=== PATIENT | female | born 1990 | race Two or more races ===

== ENCOUNTER 2018-06-30 10:28 | Emergency (ER) | payer OTHER ==
[~2018-06-30] VITALS: Ht 167.6 cm; Wt 63.5 kg
[2018-06-30] MEDS ORDERED: OBSTETRIX ONE1 EACH (11:07)
== END 2018-06-30 16:07 | disposition home or self-care (01) ==
LOC: ER 10:28
DX: O20.0 Threatened abortion (principal)

== ENCOUNTER 2018-11-30 15:39 | Inpatient (IN) | payer OTHER ==
[~2018-11-30] VITALS: Ht 167.6 cm; Wt 3.2 kg
[~2018-11-30 15:39] MED LIST: OBSTETRIX ONE1 EACH
[2019-01-07] MEDS ORDERED: INTEGRA PLUS C1 EACH PO (06:21)
[2019-01-10] MEDS ORDERED: KETO10TA2 PO (07:58)
[2019-01-10] MEDS ORDERED: OXYC1TAB9 PO (07:59)
== END 2019-01-10 12:12 | disposition home or self-care (01) | DRG 788 ==
LOC: OB/GYN 12-14 11:15 → LDR 01-07 05:37 → OB/GYN 01-07 05:37 → LDR 01-07 06:36 → OB/GYN 01-07 09:39
PROVIDERS: ADMIT Obstetrics & Gynecology Maternal & Fetal Medicine
PROC: 4A1HXCZ Monitoring of Products of Conception, Cardiac Rate, External Approach (ICD-10-PCS; 2019-01-07)
PROC: 4A033R1 Measurement of Arterial Saturation, Peripheral, Percutaneous Approach (ICD-10-PCS; 2019-01-07)
PROC: 10D00Z1 Extraction of Products of Conception, Low, Open Approach (ICD-10-PCS; principal; 2019-01-07 09:00)
DX: O76 Abnormality in fetal heart rate and rhythm complicating labor and delivery (principal); Z22.330 Carrier of Group B streptococcus; Z3A.39 39 weeks gestation of pregnancy; Z37.0 Single live birth

== ENCOUNTER 2019-01-03 11:17 | Outpatient (CLI) | payer OTHER | END 2019-01-03 12:23 | disposition home or self-care (01) | LOC: NST 11:17 | DX: Z34.83 Encounter for supervision of other normal pregnancy, third trimester (principal); Z3A.39 39 weeks gestation of pregnancy ==

== ENCOUNTER 2023-07-24 15:08 | Outpatient (CLI) | payer OTHER ==
[~2023-07-24 15:08] MED LIST changes: +INTEGRA PLUS C1 EACH PO; +KETO10TA2 PO; +OXYC1TAB9 PO
== END 2023-07-24 16:10 | disposition home or self-care (01) ==
LOC: NST 15:08
PROVIDERS: ATTEND Obstetrics & Gynecology
DX: Z34.82 Encounter for supervision of other normal pregnancy, second trimester (principal)

== ENCOUNTER 2023-11-13 12:30 | Inpatient (IN) | payer OTHER ==
[~2023-11-13] VITALS: Ht 167.6 cm; Wt 3.2 kg
[2023-11-13 14:10] LABS: HEMATOCRIT 33.2 % (36.0-45.00); HEMOGLOBIN 11.3 g/dL (12.0-15.00); MEAN CELL VOLUME 88.6 fL (80.00-100.00); MEAN CORPUSCULAR HEMOGLOBIN 30.1 pg (27.00-32.0); PLATELET COUNT 174 K/uL (150-450); RED BLOOD COUNT 3.75 M/uL (4.00-6.00); RED CELL DISTRIBUTION WIDTH 13.4 % (11.5-14.5)
[2023-11-13 14:59] LABS: ALBUMIN 2.9 gm/dL (3.4-5.0); BILIRUBIN TOTAL 0.32 mg/dL (0.3-1.2); CALCIUM 8.9 mg/dL (8.5-10.1); CREATININE SERUM 0.58 mg/dL (0.55-1.02); GFR 119.72; INR < 0.93; PARTIAL THROMBOPLASTIN TIME 24.7 SECONDS (22.0-34.0); POTASSIUM 4.01 mEq/L (3.5-5.1); PROTHROMBIN TIME 9.2 SECONDS (9.0-11.5); TOTAL PROTEIN 6.9 gm/dL (6.4-8.2)
[2023-11-21] MEDS ORDERED: RINGERS SOLUTION,LACTATED 1,000 ML IV SCH ×2 (08:30→11:30)
[2023-11-21] MEDS ORDERED: CITRIC ACID/SODIUM CITRATE 30 ML BLIST.PACK PO SCH (08:30)
[2023-11-21] MEDS ORDERED: CEFOXITIN SODIUM 2,000 MG VIAL IV SCH (08:30)
[2023-11-21 10:33] LABS: ABG PH 7.324 (7.35-7.45); ABG pCO2 50.7 mmHg (35-45); BICARBONATE 25.8 mmol/l (23-25); SaO2 16.3 %
[2023-11-21 10:34] LABS: Tco2 27.3 mmol/l; o2 21 %
[2023-11-21] MEDS ORDERED: KETOROLAC TROMETHAMINE 30 MG VIAL IM NR (11:30)
[2023-11-21] MEDS ORDERED: OXYTOCIN 20 UNITS in RINGERS SOLUTION,LACTATED 1,000 ML IV SCH (11:30)
[2023-11-21] MEDS ORDERED: MORPHINE SULFATE 4 MG/ML CARTRIDGE IV PRN (11:30)
[2023-11-21 14:31] LABS: HEMATOCRIT 31.6 % (36.0-45.00); HEMOGLOBIN 10.7 g/dL (12.0-15.00); MEAN CELL VOLUME 87.7 fL (80.00-100.00); MEAN CORPUSCULAR HEMOGLOBIN 29.7 pg (27.00-32.0); MEAN CORPUSCULAR HGB CONC 33.8 g/dl (32.0-36.0); PLATELET COUNT 155 K/uL (150-450); RED CELL DISTRIBUTION WIDTH 13.6 % (11.5-14.5)
[2023-11-21] MEDS ORDERED: CEFAZOLIN SODIUM 1,000 MG VIAL IV SCH (17:00)
[2023-11-21] MEDS ORDERED: SIMETHICONE 125 MG CAPSULE PO SCH (17:00)
[2023-11-21] MEDS ORDERED: KETOROLAC TROMETHAMINE 10 MG TABLET PO SCH (18:00)
[2023-11-22 06:58] LABS: HEMATOCRIT 31.5 % (36.0-45.00); HEMOGLOBIN 10.5 g/dL (12.0-15.00); MEAN CELL VOLUME 87.4 fL (80.00-100.00); MEAN CORPUSCULAR HEMOGLOBIN 29.2 pg (27.00-32.0); MEAN CORPUSCULAR HGB CONC 33.4 g/dl (32.0-36.0); PLATELET COUNT 152 K/uL (150-450); RED CELL DISTRIBUTION WIDTH 13.7 % (11.5-14.5)
[2023-11-22] MEDS ORDERED: OxyCODONE HCL/APAP UD (PERCOCET) PO SCH (09:00)
[2023-11-23] MEDS ORDERED: BISACODYL 10 MG/SUPP.RECT SUPP.RECT RECTAL SCH (17:00)
== END 2023-11-24 13:34 | disposition home or self-care (01) | DRG 788 ==
LOC: LDR 11-21 07:39 → OB/GYN 11-21 07:39
PROVIDERS: ADMIT Obstetrics & Gynecology Maternal & Fetal Medicine; ATTEND Obstetrics & Gynecology Maternal & Fetal Medicine
PROC: 4A1HXCZ Monitoring of Products of Conception, Cardiac Rate, External Approach (ICD-10-PCS; 2023-11-21)
PROC: 10D00Z1 Extraction of Products of Conception, Low, Open Approach (ICD-10-PCS; principal; 2023-11-21 08:15)
DX: O34.211 Maternal care for low transverse scar from previous cesarean delivery (principal); Z3A.39 39 weeks gestation of pregnancy; Z37.0 Single live birth; Z20.822 Contact with and (suspected) exposure to COVID-19